=== PATIENT | female | born 1975 | race Caucasian/White ===

== ENCOUNTER 2025-07-19 21:13 | Observation (INO) | payer OTHER ==
[2025-07-19] MEDS ORDERED: Ondansetron PF 4 MG/2 ML Vial IVP PRN (22:40)
[2025-07-19] MEDS ORDERED: Acetaminophen 325 MG TAB PO PRN (22:40)
[2025-07-19 23:54] VITALS: BMI 29.7
[2025-07-20] MEDS: diphenhydrAMINE 50 MG/ML VIAL IVP SCH (00:19)
[2025-07-20] MEDS ORDERED: Lidocaine 1% PF 5 ML VIAL ONE (08:09)
[2025-07-20] MEDS ORDERED: PROPOFOL 200 MG/20 ML VIAL ONE (08:29)
[2025-07-20 09:29] VITALS: TEMP 97.7
[2025-07-20] MEDS: Pantoprazole 40 MG VIAL IVP SCH (09:44)
[2025-07-20 13:22] VITALS: BP 136/86
== END 2025-07-20 13:27 | disposition home or self-care (01) ==
LOC: ERS 21:13 → T4-A 22:54
PROVIDERS: ADMIT Internal Medicine; ATTEND Internal Medicine
PROC: 0D758ZZ Dilation of Esophagus, Via Natural or Artificial Opening Endoscopic (ICD-10-PCS; principal; 2025-07-20)
DX: R13.10 Dysphagia, unspecified (principal); K44.9 Diaphragmatic hernia without obstruction or gangrene; J45.909 Unspecified asthma, uncomplicated; Z79.51 Long term (current) use of inhaled steroids; Z91.013 Allergy to seafood; Z91.041 Radiographic dye allergy status; Z91.040 Latex allergy status
CPT/HCPCS: 96374; 99284; G0378; J1200; J2470; J2704; J7030